=== PATIENT | male | born 1985 | race Caucasian/White ===

== ENCOUNTER 2022-05-08 19:33 | Outpatient (CLI) | payer OTHER, SELFPAY ==
--- NOTE | 2022-05-14 12:59 | W.PM.SLEEP ---
Sleep Study Details Details Interpreting Provider: Agustin Ledezma MD Date of Sleep Study: 05/08/22 Sleep Study Details: STUDY TYPE:? Home ? BMI:? 28.4 ORDERING PROVIDER:? Denice INDICATION:? Concerns about sleep apnea ? SLEEP SUMMARY:? Foreign 65 monitored minutes RESPIRATORY SUMMARY:? AHI 7.6, supine AHI 13.3, left lateral AHI 2.8 Low oxygen 86 2.2% of study oxygen less than 90% Snoring% 10.3 PERIODIC LIMB MOVEMENTS OF SLEEP:? Not recorded CARDIAC:? 53-106, 63.5 mean IMPRESSION:? Mild obstructive sleep apnea with supine position dependency. RECOMMENDATION: Treatment options could include positional therapy, CPAP AutoSet 4-17 and/or dental appliance
== END 2022-05-08 19:34 | disposition home or self-care (01) ==
PROVIDERS: PCP Family Medicine; Visit Provider Otolaryngology
DX: G47.33 Obstructive sleep apnea (adult) (pediatric) (principal)
CPT/HCPCS: 95806

== ENCOUNTER 2023-06-02 07:35 | Outpatient (CLI) | payer OTHER, SELFPAY | END 2023-06-02 07:36 | disposition home or self-care (01) | LOC: NFLDREF 06-04 11:39 | PROVIDERS: PCP Family Medicine; Referring Provider Family Medicine; Visit Provider Family Medicine | DX: E78.5 Hyperlipidemia, unspecified (principal); Z13.9 Encounter for screening, unspecified | CPT/HCPCS: 80053; 80061 ==

== ENCOUNTER 2024-03-29 17:13 | Outpatient (CLI) | payer OTHER, SELFPAY ==
--- OUTSIDE RECORDS SUMMARY | 2024-03-29 17:15 | XMS_ITS | Continuity of Care Document ---
Author Organization [facility] Address [address] [place] [address] Phone Care Team Providers Care Harvesting Contractor Name Role Phone Jalen Odonnell DO Unavailable Unavailable Allergies, Adverse Reactions, Alerts Substance Reaction Status Criticality No Known allergies Procedures Procedure Date Office/Outpatient Visit, [facility] Advance Directives Directive Yes / No Effective Date File Name Resuscitation Not Answered N/A N/A Life Support Not Answered N/A N/A Intubation Not Answered N/A N/A Antibiotics Not Answered N/A N/A IV Fluid Support Not Answered N/A N/A Tube Feed Not Answered N/A N/A Other Directive N/A N/A WARNING:The information contained in this section is historical and is provided for information only and does not constitute a legal document or any assurance that the information is still accurate. Please verify the information with the booker of the legal document before using it for clinical purposes. 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 [facility] [address], [place], [address], [place]. tel:[phone] Referring Provider: Agapito Wallace, [facility] [address], [place], [address]. tel:[phone] Family History Family Member Type Diagnosis Age At Onset No Information Payers Payer name Insurance type Covered libertarian ID Loreto leonard(lizandro OAKLEY [id number] Social History Type Description Quantity Date Captured Comments Alcohol Use Details > 5 glasses weekly 013 Caffeine Use Details Unknown Tobacco Use Status No Information Smoking Status Former smoker Smoking Tobacco Use Details Cigarette: No Details Available Cigarette: No Details Available Sex Male Vital Signs Date / Time: Height Weight BMI Pulse Rate Blood Pressure Temperature Respiratory Rate Body Surface Area Head Circumference Head Circ. Percentile Wt./Suraj. Percentile BMI percentile Pulse Ox Inhaled Ox 8:28 AM 72.50 in 189.00 lbs 25.2 8 kg/m eter (2) 100/70 mm[Hg] 98.40 F Chief Complaint And Reason For Visit From encounter dated '11/13/2012 08:30'. Joint Pain (chief complaint) Reason For Referral Reason For Referral No Information History Of Present Illness Encounter Date Complaint History Of Prese nt Illness No Information Functional Status Date Functional Assessmen t No Information Instructions Date Instruction Additional Infor mation No Information Assessments Type Assessment Date No Information Mental Status Date Cognitive Assessment Orientation - [place] ed to time, place, person, situation. Patient Care Teams Name Effective Dates (start - stop) Status Members No Information
--- NOTE | 2024-03-29 17:30 | CRLHL7_ITS ---
For Patients: As a result of the Century Cures Act, medical imaging exams and procedure reports are released immediately into your electronic medical record. You may view this report before your referring provider. If you have questions, please contact your health care provider. INDICATION: Low back pain. TECHNIQUE: Noncontrast sagittal and axial T1, T2, and sagittal STIR sequences are provided. No comparisons. FINDINGS: The overall stature, alignment and intrinsic marrow signal of the lumbar spine is within normal limits. Conus is normal. L4-5: Large right posterior paracentral/lateral recess disc protrusion extends approximately 8 millimeters beyond the posterior vertebral body margin resulting moderate to severe central canal and left lateral recess narrowing with severe right lateral recess narrowing and compression of the traversing right L5 nerve root. Remainder of the lumbar spine is unremarkable, specifically no evidence of suspicious central canal or foraminal narrowing. IMPRESSION: 1. Large right posterior paracentral/lateral recess disc protrusion at L4-5 resulting in severe right lateral recess narrowing with moderate to severe central canal and left lateral recess narrowing. There is severe compression of the traversing right L5 nerve root 2. Otherwise, unremarkable MRI of the lumbar spine. Dictated by Navid Knight MD @ 03/31/2024 3:51:15 PM (Electronically Signed)
== END 2024-03-29 17:14 | disposition home or self-care (01) ==
LOC: MRI 17:14
PROVIDERS: PCP Family Medicine; Visit Provider Family Medicine
DX: M54.50 Low back pain, unspecified (principal); M51.26 Other intervertebral disc displacement, lumbar region; M54.16 Radiculopathy, lumbar region
CPT/HCPCS: 72148

== ENCOUNTER 2024-04-09 10:46 | Outpatient (CLI) | payer OTHER, SELFPAY ==
--- OUTSIDE RECORDS SUMMARY | 2024-04-09 10:48 | XMS_ITS | Continuity of Care Document ---
Author Organization [facility] Address [address] [place] [address] Phone Care Team Providers Care Dishwasher Name Role Phone Jalen Odonnell DO Unavailable Unavailable Allergies, Adverse Reactions, Alerts Substance Reaction Status Criticality No Known allergies Procedures Procedure Date Office/Outpatient Visit, [facility] Advance Directives Directive Yes / No [...] [facility], [address], [place], [address], [place] tel:[phone] [facility], Joint Pain (chief complaint) 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 [facility] [address], [place], [address], [place]. tel:[phone] Referring Provider: Agapito Wallace, [facility] [address], [place], [address]. tel:[phone] Family History Family Member Type Diagnosis Age At Onset No Information Payers Payer name Insurance type Covered constitution party ID Loreto leonard(lizandro OAKLEY [id number] Social History Type Description Quantity Date Captured [...] Mental Status Date Cognitive Assessment Orientation - [place] ed to time, place, person, situation. Patient Care Teams Name Effective Dates (start - stop) Status Members No Information
--- OUTSIDE RECORDS SUMMARY | 2024-04-09 10:48 | XMS_ITS | Clinical Summary ---
Author Organization [facility] Address [place], [place] [address] Care Team Providers Care Record Librarian Name Role Phone Pcp, No Primary Care Provider Unavailabl e Allergies No known active allergies Medications Medication Sig Dispensed Refills Start Date End Date Status ergocalciferol (VITAMIN D2; DRISDOL) 50,000 unit capsuleIndications:V itamin D deficiency Take 1 capsule by mouth once weekly. 12 capsule 0 10/07/2011 Active Active Problems Problem Noted Date Diagnosed Date Unspecified nasal polyp 02/02/2010 Vasomotor rhinitis 10/20/2009 Tonsil stone 10/20/2009 Onychomycosis 10/20/2009 Palpitations 10/20/2009 Encounters Date Type Department Care Team Description 04/06/2024 Transcribe Orders [facility] [address] [place] [address] Archie Max MD from Last 3 Months Family History Medical History Relation Name Comments Good Health Brother Arthritis Father Hand Good Health Mother Good Health Sister Relation Name Status Comments Brother Father Mother Sister Social History Tobacco Use Types Packs/Day Years Used Date Smoking Tobacco: Never Alcohol Use Standard Drinks/Week Comments Yes 0 (1 standard drink = 0.6 oz pur e alcohol) occas Sex and Gender Information Value Date Recorded Sex Assigned at Not on file Gender Identity Not on file Sexual Orientation Not on file Obstetrics History Last Filed Vital Signs Vital Sign Reading Time Taken Comments Blood Pressure 110/80 10/03/2011 4:02 PM CDT Pulse 96 10/03/2011 4:02 PM CDT Temperature 37 ??C (98.6 ??F) 10/03/2011 3:40 PM CDT Respiratory Rate 16 10/03/2011 3:40 PM CDT Oxygen Saturation - - Inhaled Oxygen Concentration - - Weight 81.2 kg (179 lb) 10/03/2011 3:40 PM CDT Height 184.8 cm (6' 0.75) 02/01/2010 3:56 PM CD T Body Mass Index 23.78 02/01/2010 3:56 PM CDT Plan of Treatment Upcoming Encounters Date Type Department Care Team (Late st Contact Info) Description 04/09/2024 11:00 AM CDT Office Visit [facility] at [facility] [address] [place] [phone] Archie Max MD [address] [place] [address] Arrived Health Maintenance Due Date Last Done Comments Tdap 1998 Depression screening for age 12+ 1999 BMI (ht and wt on same day) for age 18+ 2005 Tetanus booster 2007 Lipids for age 35-44 2022 COVID-19 vaccine series ( season) 2024 12/26/2020, 12/05/2020 Influenza for age 9-49 03/21/2024 HIV for age 15-65 Completed 10/03/2011 Hepatitis C screening for ag e 18-79 Completed 10/03/2011 Pneumococcal series for age 6-64 Aged Out No longer eligible b ased on patient's age to complete this topic Procedures Procedure Name Priority Date/Time Associated Diagnosis Comments AMB EPIDURAL STEROID INJECTION Routine 04/09/2024 7:59 AM CDT Radiculopathy, lumbar region ANTI HIV 1/2 Routine 10/03/2011 4:34 PM CDT Exposure to needle ANTI HCV Routine 10/03/2011 4:34 PM CDT Exposure to needle from Last 3 Months or Most Recently Relevant to Health Maintenance Results * ANTI HCV (10/03/2011 4:34 PM CDT) ANTI HCV Non-reacti ve [facility] Blood specimen (specimen) BLOOD SPECIMEN / Unknown 10/03/2011 4:34 PM CDT 10/03/2011 4:22 PM CDT Margo Merinoogu MB SEND OUTS [facility] [place] [address]IP [phone] [place] [address] * ANTI HIV 1/2 (10/03/2011 4:34 PM CDT) ANTI HIV 1/2 Non-reacti ve [facility] Blood specimen (specimen) BLOOD SPECIMEN / Unknown 10/03/2011 4:34 PM CDT 10/03/2011 4:22 PM CDT Margo Merinou MB SEND OUTS Performing Organization Address City/[facility]/ZIP Co de Phone Number [facility] INTERNAL ZIP [phone] [place] [address] from Last 3 Months or Most Recently Relevant to Health Maintenance Care Teams Record Librarian Relationship Specialty Start Date End Date Pcp, No . PCP - General 08/12/13
== END 2024-04-09 10:47 | disposition home or self-care (01) ==
LOC: INJ CL 10:46
PROVIDERS: PCP Family Medicine; Visit Provider Family Medicine
DX: M54.16 Radiculopathy, lumbar region (principal); M51.26 Other intervertebral disc displacement, lumbar region
CPT/HCPCS: 64483; J1100; Q9966

== ENCOUNTER 2024-05-13 14:45 | Outpatient (RCR) | payer OTHER, SELFPAY | END 2024-09-10 23:59 | disposition home or self-care (01) | PROVIDERS: PCP Family Medicine; Visit Provider Family Medicine | DX: M54.16 Radiculopathy, lumbar region (principal); M51.26 Other intervertebral disc displacement, lumbar region; Z51.89 Encounter for other specified aftercare | CPT/HCPCS: 97110; 97140; 97162 ==

== ENCOUNTER 2024-06-22 07:30 | Outpatient (CLI) | payer OTHER, SELFPAY ==
--- OUTSIDE RECORDS SUMMARY | 2024-06-25 04:02 | XMS_ITS | Clinical Summary ---
Author Organization [facility] Address [place], [place] [address] Care Team Providers Care Veterinary Hospital Attendant Name Role Phone Pcp, No Primary Care [...] Encounters Date Type Department Care Team Description 04/09/2024 11:00 AM CDT Office Visit [facility] at [facility] [address] [place] [address] Archie Max MD Procedure (Right L5-S1 TFESI) 04/06/2024 Transcribe Orders [facility] [address] [place] [address] Archie Max MD from Last 3 Months Family History Medical History Relation Name Comments Good Health Brother Arthritis Father Hand Good Health Mother Good Health Sister Relation Name Status Comments Brother Father Mother Sister Social History Tobacco Use Types Packs/Day Years Used Date Smoking Tobacco: Never Alcohol Use Standard Drinks/Week Comments Yes 0 (1 standard drink = 0.6 oz pur e alcohol) occas Social Connections Answer Date Recorded Frequency of Communication with Friends and Fami ly Not on file 04/09/2024 Sex and Gender Information Value Date Recorded Sex Assigned at Not on file Gender Identity Not on file Sexual Orientation Not on file Obstetrics History Last Filed Vital Signs Vital Sign Reading Time Taken Comments Blood Pressure 110/80 10/03/2011 4:02 PM CDT Pulse 96 10/03/2011 4:02 PM CDT Temperature 37 C (98.6 F) 10/03/2011 3:40 PM CDT Respiratory Rate 16 10/03/2011 3:40 PM CDT Oxygen Saturation - - Inhaled Oxygen Concentration - - Weight 81.2 kg (179 lb) 10/03/2011 3:40 PM CDT Height 184.8 cm (6' 0.75) 02/01/2010 3:56 PM CD T Body Mass Index 23.78 02/01/2010 3:56 PM CDT Plan of Treatment Health Maintenance Due Date Last Done Comments [...] Comments AMB EPIDURAL STEROID INJECTION Routine 04/09/2024 12:00 AM CDT Radiculopathy, lumbar region ANTI HIV 1/2 Routine 10/03/2011 4:34 PM CDT Exposure to needle ANTI HCV Routine 10/03/2011 4:34 PM CDT Exposure to needle from Last 3 Months or Most Recently Relevant to Health Maintenance Results * AMB EPIDURAL STEROID INJECTION (04/09/2024 12:00 AM CDT) Archie Max MD NEUROLOGY ORD * ANTI HCV (10/03/2011 4:34 PM CDT) ANTI HCV Non-reacti ve [facility] Blood specimen (specimen) BLOOD SPECIMEN / Unknown 10/03/2011 4:34 PM CDT 10/03/2011 4:22 PM CDT Margo Merinou [facility] OUT[facility] [place]NAL ZIP [phone] [place] [address] * ANTI HIV 1/2 (10/03/2011 4:34 PM CDT) ANTI HIV 1/2 Non-reacti ve [facility] Blood specimen (specimen) BLOOD SPECIMEN / Unknown 10/03/2011 4:34 PM CDT 10/03/2011 4:22 PM CDT Margo Gresham [facility] SEND OUTS Performing Organization Address City/[facility]/ZIP Co de Phone Number [facility] INTERNAL ZIP [phone] [place] [address] from Last 3 Months or Most Recently Relevant to Health Maintenance Care Teams Veterinary Hospital Attendant Relationship Specialty Start Date End Date Pcp, No . PCP - General 08/12/13
--- OUTSIDE RECORDS SUMMARY | 2024-06-25 04:02 | XMS_ITS | Continuity of Care Document ---
Author Organization [facility] Address [address] [place] [address] Phone Care Team Providers Care Investment Manager Name Role Phone Jalen Odonnell DO Unavailable Unavailable Allergies, Adverse Reactions, Alerts Substance Reaction Status Criticality No Known allergies Procedures Procedure Date Office/Outpatient Visit, [facility] Advance Directives Directive Yes / No Effective [...] [facility], [address], [place], [address], [place] tel:[phone] [facility], Joint Pain (chief complaint) 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 [facility] [address], [place], [address], [place]. tel:[phone] Referring Provider: Agapito Wallace, [facility] [address], [place], [address]. tel:[phone] Family History Family Member Type Diagnosis Age At Onset No Information Payers Payer name Insurance type Covered libertarian ID Loreto leonard(lizandro OAKLEY [id number] Social History Type Description Quantity Date Captured [...] Mental Status Date Cognitive Assessment Orientation - [place] ed to time, place, person, situation. Patient Care Teams Name Effective Dates (start - stop) Status Members No Information
== END 2024-06-22 07:31 | disposition home or self-care (01) ==
LOC: NFLDREF 06-25 04:00
PROVIDERS: PCP Family Medicine; Referring Provider Family Medicine; Visit Provider Family Medicine
DX: E78.5 Hyperlipidemia, unspecified (principal); R73.01 Impaired fasting glucose; F41.9 Anxiety disorder, unspecified
CPT/HCPCS: 80053; 80061

== ENCOUNTER 2025-03-23 09:07 | Outpatient (CLI) | payer OTHER, SELFPAY ==
[2025-03-23 09:47] LABS: PCR FLU A Negative PCR FLU A (Negative); PCR FLU B Negative PCR FLU B (Negative); SARS PCR* Negative SARS-CoV-2 (Negative)
== END 2025-03-23 09:08 | disposition home or self-care (01) ==
LOC: NFLDUCREF 09:07
PROVIDERS: PCP Family Medicine; Visit Provider Physician Assistant Surgical
DX: R50.9 Fever, unspecified (principal)
CPT/HCPCS: 87631

== ENCOUNTER 2025-07-04 07:28 | Outpatient (CLI) | payer OTHER, SELFPAY ==
[2025-07-04 10:51] LABS: Cannabinoid Screen Urine Negative (Negative); Methamphetamines Screen Urine Negative (Negative); Tricyclic Antidepressant Urine Negative (Negative)
== END 2025-07-04 07:29 | disposition home or self-care (01) ==
LOC: NPINS 07:30
PROVIDERS: PCP Family Medicine; Visit Provider Physician Assistant
DX: F90.9 Attention-deficit hyperactivity disorder, unspecified type (principal)
CPT/HCPCS: 80306

== ENCOUNTER 2025-07-04 07:35 | Outpatient (CLI) | payer OTHER, SELFPAY | END 2025-07-04 07:36 | disposition home or self-care (01) | LOC: NFLDREF 07-06 12:47 | PROVIDERS: PCP Family Medicine; Referring Provider Family Medicine; Visit Provider Family Medicine | DX: E78.5 Hyperlipidemia, unspecified (principal); R53.83 Other fatigue | CPT/HCPCS: 80053; 80061; 82607 ==